=== PATIENT | male | born 1955 | race Caucasian/White ===

== ENCOUNTER 2022-11-06 14:12 | Inpatient (IN) | payer MEDICARE, MEDICAID, SELFPAY ==
[2022-11-06] VITALS (17 sets, daily range): BP systolic 78–154; BP diastolic 43–108; PULSE 112–134; RESP 18–59; TEMP 35–38.5; O2SAT 88–100
--- NOTE | ~2022-11-06 | XR_ITS ---
EXAMINATION: XR chest 1V portable Exam Date/Time: 11/06/2022 19:25 URBAN ANTHROPOLOGIST HISTORY: change of status Comparison: Same date at 3:32 PM. FINDINGS/IMPRESSION: Slightly increased linear and peribronchial vascular left lower lung opacities, may represent atelect asis or aspiration, in the appropriate clinical context. Unchanged diffuse pulmonary opacities which may reflect mild interstitial edema versus senescent change. Reviewed, dictated and finalized at location K. N ANTHROPOLOGIST
--- NOTE | ~2022-11-06 | CT_ITS ---
EXAMINATION: CT brain wo con DATE: 11/06/2022 16:16 INDICATION: fall, found down . TECHNIQUE: Computed tomography (CT) of the head was performed with intravenous contrast. The mA was a djusted according to patient size. Iterative reconstruction technique was employed. The dose-length p roduct was 681.00 mGy-cm. COMPARISON: None FINDINGS: No acute intracranial hemorrhage or extra-axial fluid collection. No hydrocephalus, mass, or herniation. No acute ischemic infarct. Unremarkable dural venous sinus attenuation. No acute osseous abnormality. The aerated spaces are clear. Mild atrophy and chronic white matter change. Atherosclerotic intracranial calcification. Chronic enc ephalomalacia in the right frontal lobe, left parietal lobe, and left occipital lobe. IMPRESSION: No acute intracranial process. Reviewed, dictated and finalized at location K. R OPERATOR
--- NOTE | ~2022-11-06 | XR_ITS ---
EXAMINATION: XR abdomen/kub 1V DATE: 11/07/2022 01:24 INDICATION: Orogastric tube placement. TECHNIQUE: A supine view of the abdomen was obtained. COMPARISON: Chest single view 11/06/2022 FINDINGS: There are no dilated loops of bowel. There is a large volume of stool in the colon. Median sternotomy wires and mediastinal surgical clips are seen, likely from prior coronary artery bypass gr afting. No nasogastric tube is identified. There are airspace opacities in left mid and lower lung zo madhu. IMPRESSION: 1. No nasogastric tube identified. Note that the nasogastric tube tip was in the midesophagus on the chest radiograph on 11/06/2022 at 10:38 PM. 2. Airspace opacities in left mid and lower lung zones, consistent with atelectasis versus pneumonia. 3. Nonobstructive bowel gas pattern. Reviewed, dictated and finalized at location A. UCT ACCOUNTANT IMPRESSION: 1. No nasogastric tube identified. Note that the nasogastric tube tip was in th e midesophagus on the chest radiograph on 11/06/2022 at 10:38 PM. 2. Airspace opacities in left mid and lower lung zones, consistent with atelect asis versus pneumonia. 3. Nonobstructive bowel gas pattern.
--- NOTE | ~2022-11-06 | XR_ITS ---
EXAMINATION: XR abdomen NG/feed tube insert DATE: 11/06/2022 22:51 INDICATION: Orogastric tube placement. TECHNIQUE: A supine view of the abdomen was obtained. COMPARISON: None. FINDINGS: The lower abdomen is excluded. There are no dilated loops of bowel. There is a large volume of stool in the colon. IMPRESSION: 1. No nasogastric tube identified. Reviewed, dictated and finalized at location A. ITAL TELEVISION RENTAL CLERK
--- NOTE | ~2022-11-06 | CT_ITS ---
EXAMINATION: CT cervical spine wo con DATE: 11/06/2022 16:19 INDICATION: fall TECHNIQUE: Computed tomography (CT) of the cervical spine was performed without intravenous contrast. Automated exposure control and iterative reconstruction technique were employed. The dose-length pro duct was 234.16 mGy-cm. COMPARISON: CTA carotid 05/07/2013. FINDINGS: Vertebral Body Alignment: Intact. . Craniocervical and atlantoaxial alignment: Moderate degenerative change. Alignment intact. Osseous structures/fracture: No evidence of a lytic or blastic process in the visualized spine. No e vidence of acute fracture. . Cervical soft tissues: The paraspinal soft tissues planes are maintained. Degenerative changes: Multilevel degenerative disc disease. Multilevel bilateral severe neural forami nal narrowing. No severe central canal narrowing. IMPRESSION: No acute fracture or traumatic malalignment in the cervical spine Reviewed, dictated and finalized at location K. HOME SALES REPRESENTATIVE
--- NOTE | ~2022-11-06 | XR_ITS ---
EXAMINATION: XR chest 1V portable Exam Date/Time: 11/06/2022 15:30 TELEVISION SCRIPT WRITER HISTORY: COUGH, LOW BODY TEMP. HX CAD,COPD, CVA W/RT SIDE DEFECIT Comparison: None available. RESULT: Lines, tubes, and devices: Intact sternotomy wires. Ostial markers. Lungs and pleura: Linear peripheral reticular opacities. No focal consolidation, pneumothorax, or la rge effusion. Cardiomediastinal silhouette: Stable. Other: No acute osseous or upper abdominal finding. IMPRESSION: Pulmonary opacities may reflect mild interstitial edema. Reviewed, dictated and finalized at location K. VISION SCRIPT WRITER
--- NOTE | ~2022-11-06 | XR_ITS ---
EXAMINATION: XR chest ET placement DATE: 11/06/2022 22:52 INDICATION: Intubation. TECHNIQUE: A single frontal view of the chest was obtained. COMPARISON: Chest single view at 7:25 PM FINDINGS: The patient is rotated to his left. There is mild atelectasis in left mid and lower lung zo madhu. No pleural effusion or pneumothorax. The heart size is normal. Median sternotomy wires and media stinal surgical clips are seen, likely from prior coronary artery bypass grafting. The endotracheal t ube tip is 4.8 cm above the daniela. A right internal jugular central venous catheter is seen with tip in the superior vena cava. The nasogastric tube tip is in the midesophagus. IMPRESSION: 1. Mild atelectasis in left mid and lower lung zones. 2. Nasogastric tube tip in the midesophagus. Reviewed, dictated and finalized at location A. NEERING PROFESSIONALS
--- NOTE | 2022-11-06 14:55 | ECG_ITS ---
Measurements Intervals Spring Rate: 117 P: SC: 0 QRS: -19 QRSD: 118 T: 151 QT: 313 QTc: 438 Interpretive Statements VERY POOR QUALITY ECG WITH BASELINE ARTIFACT REGULAR TACHYCARDIA INABILITY TO DISCERN ATRIAL RHYTHM INTRAVENTRICULAR CONDUCTION DELAY CONSISTENT WITH INCOMPLETE LEFT BUNDLE BRANCH BLOCK ABNORMAL BUT POOR QUALITY ECG NO PREVIOUS ECG AVAILABLE FOR COMPARISON Electronically Signed On 11-07-2022 8:30:49 TIRE BUILDER OPERATOR by Farzad Mcclure M.D.
--- NOTE | 2022-11-06 14:56 | ED.AMS ---
HPI - Altered Mental Status General Chief Complaint: Altered Mental Status Stated Complaint: Found on floor, last seen Tuesday Time Seen by Provider: 11/06/22 14:42 History of Present Illness HPI narrative: Patient is a 67-year-old male with a history of CVA with right-sided residual deficits, hyperlipidemia, hypertension, CAD presenting after being found down. History is somewhat unclear at this time. Patient states that he had a fall on Tuesday but he is unsure of the events of the last 2 days. His family checked on him today and found him on the floor covered in feces and urine and vomit. They last saw him in his normal state of health 3 days ago. Patient currently denies pain, states that he feels cold. States that he has been intermittently nauseated. He denies headache, chest pain, shortness of breath, cough, abdominal pain. 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 He has 3 grown children but he does not have any contact with them. He is a former smoker but quit smoking in the late . He denies any alcohol use. 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 Code status: Full code Surrogate decision maker: Brother Stevan Smoking packs per day: 2.5 Smoking cigarettes per day: 50.0 Years smoked: 25 Smoking pack-years: 62.50 Smoking status: Former smoker Second hand tobacco smoke exposure: No Smoking end date: 11/28/99 Alcohol intake: never Substance use: never Exam Narrative: GENERAL: Ill-appearing elderly male laying in bed with bear hugger HEAD: Normocephalic, atraumatic. EYES: PERRLA and EOMI. ENT: Nares clear, no rhinorrhea or epistaxis. Mucous membranes moist. NECK: Supple. CHEST: Coarse breath sounds bilaterally. Saturating mid 90s on 4 L nasal cannula HEART: Tachycardic, regular rhythm. No murmur heard. Normal peripheral pulses. ABDOMEN: Soft, nontender, nondistended, normal active bowel sounds. EXTREMITIES: Normal range of motion. No edema. Bilateral lower extremities are mottled and pale, distal pulses 2+ SKIN: Mottled, cold NEURO: 4/5 strength right extremities which is baseline, 5 out of 5 strength left extremities, alert and oriented x3. Course Vital Signs Vital signs: Vital Signs Temperature 95 F L 11/06/22 14:00 Pulse Rate 121 H 11/06/22 14:00 Respiratory Rate 40 H 11/06/22 14:00 Blood Pressure 154/108 H 11/06/22 14:00 Oxygen Delivery Nasal Cannula 11/06/22 14:00 Oxygen Flow Rate 4 11/06/22 14:00 Temperature 100.2 F H 11/06/22 23:48 Pulse Rate 122 H 11/07/22 00:43 Respiratory Rate 20 11/07/22 00:30 Blood Pressure 86/68 L 11/07/22 00:50 Pulse Oximetry 92 11/07/22 00:43 Oxygen Delivery Mechanical Ventilation 11/07/22 00:43 Oxygen Flow Rate 4 11/06/22 14:00 Fraction of Inspired Oxygen 100 11/07/22 00:43 MDM - Altered Mental Status MDM Narrative Medical decision making narrative: Patient is a 67-year-old male who is presenting after being found down for an unknown amount of time. Patient is tachycardic and h
[2022-11-06] MEDS: ONDANSETRON INJ 4 MG/2 ML VIAL IV PUSH (15:12)
[2022-11-06] MEDS: SODIUM CHLORIDE 0.9% IV 1,000 ML 999 ML IV CONT ×2 (15:13→17:22)
[2022-11-06 15:35] LABS: Appearance Urine Clear (Clear); Bilirubin Urine 1+ (Negative); Blood Urine 3+ (Negative); Color Urine Yellow (Yellow); Glucose Urine UA Negative (Negative); Ketones Urine Trace mg/dL (Negative); Leukocyte Esterase Ur Negative LEU/UL (Negative); Nitrate Urine Negative (Negative); Protein Urine 3+ mg/dL (Negative); Specific Grav Ur >= 1.030 (1.001-1.035); Urobilinogen Urine 0.2 mg/dL (<2.0); pH Urine 5.5 (5.0-9.0)
[2022-11-06 16:00] LABS: Mucus Urine Rare /lpf; RBC Urine 0-2 /hpf (0-2); WBC Urine 0-3 /hpf
[2022-11-06 16:02] LABS: Add Urine Microscopic? YES
[2022-11-06 16:05] LABS: Influenza A QL RT-PCR Positive (Negative); Influenza B QL RT-PCR Negative (Negative); SARS-CoV-2 RNA PCR Negative
[2022-11-06 16:13] LABS: Glucose Point of Care 199 mg/dl (65-105)
[2022-11-06 16:23] LABS: Basophils Percent Auto 0.1 % (0.2-1.2); Hematocrit 43.8 % (42.0-52.0); Hemoglobin 14.8 g/dL (14.0-18.0); Immature Granulocyte Absolute 0.19 K/mm3 (0.00-0.031); Immature Granulocyte Percent A 0.8 % (0-0.5); Lymphocytes Absolute Auto 0.75 K/mm3 (0.9-3.2); Lymphocytes Percent Auto 3.2 % (18.3-44.2); Mean Corpuscular HGB Conc 33.8 g/dl (32-36); Mean Corpuscular Volume 91.8 fl (80-100); Mean Platelet Volume 11.4 fl (7.4-10.4); Monocytes Absolute Auto 1.1 K/mm3 (0.1-0.6); Monocytes Percent Auto 4.8 % (2.6-8.5); Neutrophils Absolute Auto 21.6 K/mm3 (1.3-6.7); Neutrophils Percent Auto 91.1 % (45.5-73.1); Platelet Count Result 221 k/mm3 (150-375); Red Blood Count 4.77 M/mm3 (4.6-6.20); Red Cell Distribution Width 13.1 % (11.5-14.5); White Blood Count 23.7 K/mm3 (4.5-10.0)
[2022-11-06 16:34] LABS: INR 1.1; Prothrombin Time 13.9 Seconds (11.1-14.7)
[2022-11-06 16:35] LABS: Partial Thromboplastin Time 32.5 SECONDS (22.3-36.8)
[2022-11-06 16:44] LABS: Alanine Aminotransferase 147 U/L (6-50); Albumin Level 4.1 g/dL (3.5-5.1); Alkaline Phosphatase 66 U/L (38-126); Anion Gap 22 mmol/L (8-16); Aspartate Amino Transferase 701 U/L (17-59); Blood Urea Nitrogen 97 mg/dL (9-20); Calcium 7.4 mg/dL (8.4-10.2); Carbon Dioxide 19 mmol/L (22-30); Chloride 96 mmol/L (98-107); Glucose 214 mg/dL (65-110); Lipase 233 U/L (23-300); Potassium 3.2 mmol/L (3.4-5.0); Sodium 137 mmol/L (137-145)
[2022-11-06 16:46] LABS: Lactic Acid Reflex 4.5 mmol/L (0.7-2.0)
[2022-11-06 16:54] LABS: Ovalocytes 1+ (NORMAL); Platelet Estimate Adequate (Adequate); Schistocytes None Seen (NORMAL)
[2022-11-06 17:00] LABS: Estimated Glomerular Filt Rate 18
[2022-11-06 17:39] LABS: Creatine Kinase > 16000 U/L (55-170)
[2022-11-06 19:20] LABS: Reflex Lactic Acid Yes or No Add Lactic
[2022-11-06 19:44] LABS: Lactic Acid 2.9 mmol/L (0.7-2.0)
[2022-11-06 19:53] LABS: Alveolar/Arterial O2 Gradient 360.9 mmHg; Fractional Inspired Oxygen 60 %; HCO3 ABG 17.5 mEq/l (22.0-26.0); PCO2 ABG 39.6 mmHg (35.0-45.0); PO2 FiO2 Ratio Arterial Blood 0.39 %; Total Hemoglobin 13.8 g/dL (12.0-18.0)
[2022-11-06 19:56] LABS: PO2 ABG < 27.0 mmHg (80.0-100.0); pH ABG 7.262 (7.350-7.450)
[2022-11-06 19:57] LABS: Device NASAL CANNULA; Modified Allen's Test Pass; Oxygen Saturation ABG 33.8 % (95.0-100.0); Oxyhemoglobin 25.8 % THb (90.0-100.0); Site Drawn LEFT RADIAL
[2022-11-06 20:03] LABS: Alanine Aminotransferase 141 U/L (6-50); Albumin Level 3.4 g/dL (3.5-5.1); Alkaline Phosphatase 53 U/L (38-126); Anion Gap 16 mmol/L (8-16); Aspartate Amino Transferase 717 U/L (17-59); Bilirubin,Total 0.9 mg/dL (0.2-1.3); Blood Urea Nitrogen 99 mg/dL (9-20); Calcium 6.5 mg/dL (8.4-10.2); Carbon Dioxide 18 mmol/L (22-30); Chloride 103 mmol/L (98-107); Estimated Glomerular Filt Rate 16; Glucose 164 mg/dL (65-110); Potassium 3.8 mmol/L (3.4-5.0); Sodium 137 mmol/L (137-145)
[2022-11-06] MEDS: SODIUM CHLORIDE 0.9% IV 1,000 ML 250 ML IV CONT (20:40)
[2022-11-06] MEDS: ALBUTEROL SULFATE NEB 2.5 MG/3 ML INH 5 MG INHALATION (20:48)
--- NOTE | 2022-11-06 21:01 | PM.IMHP ---
H&P: HPI History of Present Illness Date/Time: 11/05/22 21:01 Chief Complaint: Found down on the floor Narrative: H&P/ summary 67-year-old male with a past medical history of prior CVA, coronary artery disease status post 4 vessel CABG 2012, COPD, and peripheral neuropathy who presented to the ER after found down for unknown amount of days. The patient is last known well was on the . The patient had reported to the ER staff that he had fallen on Tuesday but was unsure of the events for the last 2 days. When his family had not heard from they did a wellness check today and found the patient on the floor covered in feces urine and emesis. The patient was alert oriented to person place time and the fact that he had fallen. He could not give much detail over the last couple of days. He reports that he generally does not feel good. He denied any localized pain but on palpation of the abdomen he seemed tender. He had a ulceration to his right shoulder. He was initially hypothermic in the ER and placed under Ernesto Hugger but shortly thereafter became febrile. He was sinus tach on presentation the initially had normal blood pressures. The patient had been having intermittent nausea and had obvious evidence of emesis on arrival to the ER. He denies any headaches, chest pain or abdominal pain. A Jay catheter placed in the ER on presentation. They were having difficulty obtaining the patient's temperature initially so that the catheter was a temperature probe Jay. The patient had fluid boluses applied in the ER. He had labs that demonstrated acute kidney injury and rhabdomyolysis with CK greater than 16,000 as well as leukocytosis. The patient was found to be influenza A positive and had severe lactic acidosis. He also had elevated troponin. Patient was initially admitted to IMU. However ER staff called me the when the patient had a change in condition. The patient had become increasingly more tachypneic with respiratory rate in the 50s and hypoxic. X-ray demonstrated worsening interstitial edema. Lactic acid was 2.9 patient was given Tylenol. He was given broad-spectrum antibiotic coverage due to concern for possible aspiration. He was placed on BiPAP with initial improvement in his oxygen saturations but patient remained tachypneic with respiratory rate 40 to 50. When I went to evaluate the patient his blood pressures were soft. The patient had initially told the ER staff that he did not want intubated. However when I told the patient that he was not maintaining his respiratory status on BiPAP and I asked him if he wanted to be made comfortable or if he wanted to be placed on the ventilator the patient stated that he wanted to be intubated. He stated that he wanted to at least try and see if his condition could improve on the ventilator. I did explain to the patient that given his clinical condition his overall prognosis was poor. He still wanted to try. I saw the patient in the ER and he was intubated in the ER. The patient also consented to a central line in a right IJ was placed. Following intubation patient became hypotensive and pressors were initiated with Levophed. I went to evaluate another patient in the patient was supposed to go for CT of the chest. Before he could go to have CT of the chest he became more hypoxic and CT was subsequently deferred into later and patient was moved to the ICU. On arrival to the ICU patient's condition continue to deteriorate and code was called. Please see code blue note for details. Review of Systems Review of Systems: 12 systems were reviewed with pertinent positives and negatives per HPI. Except as documented in the HPI, all other systems were reviewed and are negative. The patient had denied urinary symptoms with side stay incontinence he was having due to lying on the floor. 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 He denied any confusion or changes in memory.
[2022-11-06] MEDS: ETOMIDATE 20 MG/10 ML AMPUL (21:48)
[2022-11-06] MEDS: RAPID SEQUENCE INTUBATION KIT 1 EACH (21:49)
--- NOTE | 2022-11-06 22:00 | PC.NURSE ---
maintenance fluids open wide per ERP
[2022-11-06] MEDS: NOREPINEPHRINE 8 MG/D5W 250 ML 8 MG/250 ML BAG 9.38 MG IV CONT (22:35)
[2022-11-06] MEDS: SODIUM BICARBONATE 8.4% 50 MEQ/50 ML SYRINGE IV PUSH ×2 (22:55→22:57)
[2022-11-06] MEDS: FENTANYL 2,500MCG/NS250ML(*CRX 2,500 MCG/250 ML BAG IV CONT (23:10)
[2022-11-06] MEDS: MIDAZOLAM 100MG/NS 100ML(*CRX) 100 MG/100 ML BAG IV CONT (23:15)
[2022-11-06] MEDS: fentaNYL CITRATE INJ (*CRX) 100 MCG/2 ML VIAL (23:38)
--- NOTE | 2022-11-06 23:41 | PC.NURSE ---
lavender colored urine noted in barraza tubing, pt WOB of breathing has increased and ERP notified. Pt is A/O x 4 and when asked if he was wants to be intubated or have chest compressions pt stated no. This was heard by ERP and charge nurse CP
[2022-11-07] VITALS (8 sets, daily range): BP systolic 47–112; BP diastolic 25–88; PULSE 118–122; RESP 20; O2SAT 92
--- NOTE | 2022-11-07 00:28 | ADMGEN ---
This patient, Gio Doshi, was admitted to Intensive Care Unit-6. Patient/family oriented to hospital policies and general routines including ID bracelet, bed and alarms, visiting hours, pain management, procedures, bathroom and other care routines, personal items, smoking policy, room service/diet, and visiting hours. Information on how to activate the Rapid Response Team has been discussed. Patient/Family are encouraged to report perceived risks to care and to ask questions if they do not understand what they are told or what they should do.
[2022-11-07] MEDS: VASOPRESSIN INJ 100 UNITS in DEXTROSE 5% 95 ML IV CONT (00:30)
[2022-11-07] MEDS: SODIUM BICARBONATE 8.4% 50 MEQ/50 ML SYRINGE (00:32)
[2022-11-07] MEDS: SODIUM BICARBONATE 8.4% 50 MEQ/50 ML SYRINGE IV PUSH (00:35)
[2022-11-07 00:39] LABS: Alveolar/Arterial O2 Gradient 617.1 mmHg; Base Excess ABG -11.6 mEq/l (+/-2.0); Carboxyhemoglobin 0.3 % THb (0-2.0); Fractional Inspired Oxygen 100 %; HCO3 ABG 16.2 mEq/l (22.0-26.0); Methemoglobin ABG 0.5 %THb (0-1.5); Oxygen Content ABG 14.3 %vol (16.0-22.0); PCO2 ABG 43.7 mmHg (35.0-45.0); PO2 ABG 52.2 mmHg (80.0-100.0); PO2 FiO2 Ratio Arterial Blood 0.52 %; Reduced Hemoglobin 24.4 %THb (0-5.0); Total Hemoglobin 13.6 g/dL (12.0-18.0)
[2022-11-07 00:43] LABS: Oxygen Saturation ABG 78.6 % (95.0-100.0); pH ABG 7.188 (7.350-7.450)
[2022-11-07 00:44] LABS: Device VENTILATOR; Modified Allen's Test Unable to perform; Oxyhemoglobin 74.8 % THb (90.0-100.0); Site Drawn LEFT RADIAL
[2022-11-07 00:45] LABS: Arterial Blood Gas PEEP 8 cmH2O; Arterial Blood Gas Tidal Volume 380 ml; Arterial Blood Gas Vent Mode CMV; Arterial Blood Gas Ventilator rate 18 /MIN
[2022-11-07] MEDS: DOPamine 400 MG/D5W 250 ML 400 MG/250 ML BAG 20 MG (00:49)
--- NOTE | 2022-11-07 00:57 | PC.NURSE ---
Pt given 2147 Etomidate 20mg IVP . 2148 Succinylcholine 100mg IVP intubated by Dr. King with 7.5 ETT 24 at lip confirmation by color change on CO2 monitor and bilateral breath sounds
--- NOTE | 2022-11-07 01:43 | PC.NURSE ---
0028: Pt admitted to ICU 6 at from ER with VSS except unable to obtain oxygen saturation. 0030: Pt moved over to ICU bed and blood pressures soon began dropping. BP 89/69. Started vasopressin drip at 0.02. 0032: Dr. King at bedside to obtain ABG and place arterial line at this time. 0045: X-ray in to see pt and verify OG placement. This RN tried to advance OG tube without success. 0046: BP 47/32 and obtained verbal order from Dr. King to start dopamine drip at 20. 0052: Pulse was doppled by Dr. King while trying to place an arterial line and pulse absent. Code blue initiated.
--- NOTE | 2022-11-07 01:59 | PC.NURSE ---
Admission not completed d/t patient's passing soon after arriving to the floor.
--- NOTE | 2022-11-07 03:02 | PC.NURSE ---
Marta from [facility] called and stated Gio Doshi is not a donation candidate and can be released to home.
--- NOTE | 2022-11-07 03:03 | PC.NURSE ---
ER delivered patients phone but it is locked. Called one identifiable number but it has an invalid mailbox.
--- NOTE | 2022-11-07 03:27 | P.PCNBED_ITS ---
Procedures Central Line Placement Right IJ: Central Line Date: 11/06/22 Central Line Time: 22:00 Discussed w/ the patient/family/POA,the placement of a central venous catheter, including its clinical necessity/indication & associated potential risks, benifits and alternatives.: Yes The patient/family/POA understand(s) and acknowledge(s) the need to proceed with central venous catheter insertion as an important element of the patient's clinical management.: Yes Consent: I have discussed with the patient and/or surrogate, the non-emergent placement of a central venous catheter, including its clinical necessity/indication and associated potential risks and complications. The patient and/or surrogate understand(s) and acknowledge(s) the need to proceed with central venous catheter insertion as an important element of the patient's clinical management. Time Out Performed: Yes Patient Position: trendelenburg Patient placed on monitor/pulse ox: Yes Provider Prep: mask, sterile gown, sterile gloves, Max. sterile barrier precautions, cap and hand hygiene with conventional soap/water or alcohol based hand rub Central line prep: 2% Chlorhexidine scrub Sterile US Technique with sterile gel/sterile probe covers: Yes Central line lumen inserted: triple Italian: 7 Length (cm): 17 Depth of Insertion (cm): 17 Post Procedure: sutured in place, good blood return, all ports aspirated, flushed, capped, transparent dressing, hemostatic product, antimicrobial product and securement product Post procedure x-ray: tip of catheter in good position and no pneumothorax seen Patient tolerated procedure: well Intubation Intubation Date: 11/06/22 Intubation Time: 21:50 Consent: Patient was alert and oriented x4. The patient seemed understand the risks and benefits of procedure. Patient consented for intubation and stated that he would want his brother to make decisions for him that he was unable to do so. A pre-procedural Time-Out was completed immediately before starting the procedure and confirmed: Patient Identification, Site, Procedure, Patient Position and the Availability of Requisite Equipment: Yes Sedative: etomidate Mg given: 20 Paralytic: succinylcholine Mg given: 100 Laryngoscope: fiber optic video scope ET tube size: 7.5 Tube secured depth (cm): 24 Tube secured location: lips Tube placement confirmation: visualized tube passing through cords, equal breath sounds bilaterally, no breath sounds over epigastrium and confirmation by capnometry Patient tolerated procedure: well Intubation complications: none
--- NOTE | 2022-11-07 03:44 | PC.NURSE ---
Safety Sitter called with family phone numbers: Nephew Stevan Doshi [phone] is aware of patient and will make his father aware in AM. Family has suffered several losses recently so he doesn't want to wake him with the news. Dad and Brother Stevan Doshi Sr [phone].
--- NOTE | 2022-11-07 05:00 | PDCODEBLUE ---
Code Blue Note Code Blue Note Time Arrived at Code Blue: I was at bedside prior to code being called Initial Rhythm on Arrival: PEA Airway Management: Prior intu Chest Compressions: Initiated upon arrival Result of Code Blue: Pt Cardiac Rhythm Post Code: Asystole Code Blue Summary: The patient was already being treated for acute hypoxic respiratory failure and multiorgan system failure. Despite resuscitation efforts with IV fluids, pressors, bicarb and antibiotic therapy the patient's condition continued to deteriorate. Shortly after arriving to the ICU the patient became markedly hypotensive despite being maxed out on 2 vasopressors. The patient was still having some agonal respirations while being bagged by respiratory therapy. The we had had difficulty obtaining accurate pulse ox is on the patient prior to this because the patient was clamped down and markedly facial constricted with marked mottling include extremities. ABG is attempts were limited even with the use of ultrasound with difficulty obtaining arterial specimens. During the course of resuscitation the patient was in PA for the 1st 4 rounds of CPR was multiple doses of epinephrine, calcium and sodium bicarb administered. These efforts were made with calcium and bicarb due to the patient's known metabolic acidosis. After 8 minutes of resuscitation the patient was noted to be in ventricular fibrillation and was shocked with 200 joules. With the next pulse check the patient appeared to be in PEA. The patient again was in VFib to with the next pulse check and he received another defibrillator discharge. After 12 minutes the resuscitation efforts and 2 more pulse checks demonstrating PEA the code was called. Time of was 01:05. 35 minutes was spent in critical care activities evaluating the patient just prior to the code and in resuscitation efforts.
--- NOTE | 2022-11-09 17:35 | PCCCNOTE ---
Received call from patient's daughter, Ban Felix [phone]. She requested that the [employer] be notified of pt. expiration so a message could be sent to her brother in law in the [employer]. The [employer] was contacted today and Marie created message to be sent. Balance Staff Inspector to be contacted is Staff Sergeant Shankar Hernandez at [facility] [phone]. Per Marie, message was created to be sent to his commanding officer. . Ban has been updated.
== END 2022-11-07 01:05 | disposition expired | DRG 871 ==
LOC: ANHED 15:36 → ANHICU 22:18 → ANHIMU 11-09 11:39
PROVIDERS: Admitting Provider Internal Medicine; Emergency Provider Emergency Medicine; PCP Physician Assistant; Visit Provider Internal Medicine
DX: A41.9 Sepsis, unspecified organism (principal); I21.A1 Myocardial infarction type 2; J96.01 Acute respiratory failure with hypoxia; R65.21 Severe sepsis with septic shock; K72.00 Acute and subacute hepatic failure without coma; I69.351 Hemiplegia and hemiparesis following cerebral infarction affecting right dominant side; I42.9 Cardiomyopathy, unspecified; M62.82 Rhabdomyolysis; N17.9 Acute kidney failure, unspecified; E87.20 Acidosis, unspecified; Z68.1 Body mass index [BMI] 19.9 or less, adult; I49.01 Ventricular fibrillation; J10.1 Influenza due to other identified influenza virus with other respiratory manifestations; I10 Essential (primary) hypertension; I25.10 Atherosclerotic heart disease of native coronary artery without angina pectoris; J44.9 Chronic obstructive pulmonary disease, unspecified; E78.5 Hyperlipidemia, unspecified; G62.9 Polyneuropathy, unspecified; Z20.822 Contact with and (suspected) exposure to COVID-19; Z95.1 Presence of aortocoronary bypass graft; Z87.891 Personal history of nicotine dependence; Z79.82 Long term (current) use of aspirin
CPT/HCPCS: 36415; 36600; 70450; 71045; 72125; 74018; 80053; 81001; 82375; 82550; 82805; 82948; 83050; 83605; 83690; 84484; 85025; 85610; 85730; 87040; 87636; 92950; 93005; 94002; 94640; 96361; 96374; 99285; C1751; J0171; J0330; J0692; J1265; J2250; J2405; J3010; J3370; J7030